=== PATIENT | female | born 1940 | race Caucasian/White ===

== ENCOUNTER 2022-05-02 14:24 | Inpatient (IN) | payer MEDICARE, OTHER ==
[~2022-05-02] VITALS: Ht 155 cm; Wt 62.0 kg
[~2022-05-02 14:24] MED LIST: 8 HOUR650 MG PO; ASPIRIN PO; CALCIUM CITRAT200 MG PO; DAILY VALUE1 EACH PO; OMEPRAZOLE40 MG PO; ONDANSETRON ODT4 MG PO/SL; ROPINIROLE HCL0.5 MG PO; ZESTRIL5 MG PO
[2022-05-02 17:11] LABS: BASOPHIL 0.3 % (0-2); EOSINOPHIL 0.4 % (0-7); HCT 35.5 % (37.0-47.0); HGB 11.8 g/dl (12.5-16.0); LYMPHOCYTE 4.2 % (15-48); MCH 31.5 pg (25.0-31.0); MCHC 33.2 g/dL (32.0-36.0); MCV 94.7 fL (78.0-100.0); MONOCYTE 6.1 % (0-12); NRBC 0; PLT 422 K/uL (150-400); RBC 3.75 M/uL (4.20-5.40); RDW 12.7 % (11.5-14.0)
[2022-05-02 17:13] LABS: WBC 23.1 K/uL (4.0-10.5)
[2022-05-02 17:39] LABS: LACTIC ACID 1.9 mmol/L (0.4-1.9)
[2022-05-02 17:50] LABS: ALBUMIN 3.8 g/dL (3.4-5.0); BILIRUBIN - TOTAL 0.6 mg/dL (0.2-1.0); GLOBULIN (CALCULATION) 4.2 g/dL; LIPASE <10 U/L (73-393)
[2022-05-02 18:09] LABS: BUN 21 mg/dL (7-18); CHLORIDE 90 mmol/L (98-107); CO2 (BICARBONATE) 23 mmol/L (21-32); GLUCOSE 161 mg/dL (74-106); MAGNESIUM 1.8 mg/dL (1.8-2.4); POTASSIUM 5.1 mmol/L (3.5-5.1)
[2022-05-02 18:10] LABS: CREATININE 1.37 mg/dL (0.51-0.95)
[2022-05-02 18:11] LABS: ALKALINE PHOSHATASE 144 U/L (46-116); ALT 27 U/L (14-59); AST 36 U/L (15-37)
[2022-05-02 18:15] LABS: FT4 (FREE T4) 1.52 ng/dL (0.76-1.46)
[2022-05-02 20:26] LABS: BILIRUBIN NEGATIVE (NEGATIVE); BLOOD NEGATIVE Ery/uL (NEGATIVE); CLARITY CLEAR (CLEAR); COLOR YELLOW (YELLOW); GLUCOSE (U) NORMAL (NORMAL); LEUKOCYTES NEGATIVE Leu/uL (NEGATIVE); NITRITE NEGATIVE (NEGATIVE); PROTEIN TRACE (LOW) mg/dL (NEGATIVE); SPECIFIC GRAVITY <=1.005 (1.001-1.030); UROBILINOGEN 0.2 mg/dL (0.2-1.0)
[2022-05-02 23:44] LABS: BUN/CREAT RATIO (CALC) 16.5 RATIO; CREATININE 1.33 mg/dL (0.51-0.95); POTASSIUM 4.8 mmol/L (3.5-5.1)
[2022-05-03 06:39] LABS: BASOPHIL 0.3 % (0-2); EOSINOPHIL 0.1 % (0-7); HCT 25.6 % (37.0-47.0); HGB 8.8 g/dl (12.5-16.0); LYMPHOCYTE 8.9 % (15-48); MCH 33.2 pg (25.0-31.0); MCHC 34.4 g/dL (32.0-36.0); MCV 96.6 fL (78.0-100.0); MONOCYTE 7.2 % (0-12); MPV 8.6 fL (6.0-9.5); NEUTROPHIL 82.8 % (41-80); NRBC 0; PLT 337 K/uL (150-400); RBC 2.65 M/uL (4.20-5.40); RDW 12.9 % (11.5-14.0); RETICULOCYTE COUNT 1.4 % (1.0-2.0); WBC 13.8 K/uL (4.0-10.5)
[2022-05-03 06:52] LABS: IRON % SATURATION 11.1 %SAT (20-50)
[2022-05-03 07:19] LABS: BUN/CREAT RATIO (CALC) 15.3 RATIO; CREATININE 1.31 mg/dL (0.51-0.95); POTASSIUM 4.5 mmol/L (3.5-5.1)
[2022-05-03 12:07] LABS: BUN/CREAT RATIO (CALC) 17.1 RATIO; CREATININE 1.23 mg/dL (0.51-0.95); POTASSIUM 4.3 mmol/L (3.5-5.1)
[2022-05-03 17:25] LABS: BUN/CREAT RATIO (CALC) 18.3 RATIO; CREATININE 1.15 mg/dL (0.51-0.95); POTASSIUM 4.4 mmol/L (3.5-5.1)
[2022-05-03 23:39] LABS: CREATININE 0.94 mg/dL (0.51-0.95)
[2022-05-04 06:59] LABS: HCT 19.4 % (37.0-47.0); HGB 8.3 g/dl (12.5-16.0); MPV 8.8 fL (6.0-9.5); PLT 342 K/uL (150-400); RBC 1.81 M/uL (4.20-5.40); WBC 8.6 K/uL (4.0-10.5)
[2022-05-04 07:03] LABS: BUN/CREAT RATIO (CALC) 14.4 RATIO; CREATININE 0.9 mg/dL (0.51-0.95)
[2022-05-04 07:36] LABS: MCH 45.9 pg (25.0-31.0); MCHC 42.8 g/dL (32.0-36.0); MCV 107.2 fL (78.0-100.0)
--- NOTE | 2022-05-04 13:37 | NUR ---
05/04/22 Ms. Hedrick lives alone. Her son, Derrick Hedrick, lives across the street. - Ms. Hedrick is independent in the home and community. - PCP = Risa Santos. - Drs. Novak and Florinda are consulting r/t a likely dx of colon cancer with mets. - Ms. Hedirck and her son report to be awaiting test results. - Will monitor for discharge planning needs.
== END 2022-05-04 16:35 | disposition home or self-care (01) | DRG 375 ==
LOC: FER 14:24 → FMS 20:08
PROVIDERS: Emergency Medicine; Family Medicine; Nurse Practitioner Acute Care; Student in an Organized Health Care Education/Training Program; ADMIT Internal Medicine
PROC: B24BZZZ Ultrasonography of Heart with Aorta (ICD-10-PCS; 2022-05-03)
PROC: 0DB78ZX Excision of Stomach, Pylorus, Via Natural or Artificial Opening Endoscopic, Diagnostic (ICD-10-PCS; principal; 2022-05-04 09:00)
PROC: 0DJD8ZZ Inspection of Lower Intestinal Tract, Via Natural or Artificial Opening Endoscopic (ICD-10-PCS; 2022-05-04 09:00)
DX: C18.9 Malignant neoplasm of colon, unspecified (principal); C78.6 Secondary malignant neoplasm of retroperitoneum and peritoneum; C78.7 Secondary malignant neoplasm of liver and intrahepatic bile duct; E87.1 Hypo-osmolality and hyponatremia; N17.9 Acute kidney failure, unspecified; Z20.822 Contact with and (suspected) exposure to COVID-19; Z66 Do not resuscitate; D72.829 Elevated white blood cell count, unspecified; R73.9 Hyperglycemia, unspecified; D63.0 Anemia in neoplastic disease; R01.1 Cardiac murmur, unspecified; D46.4 Refractory anemia, unspecified; I10 Essential (primary) hypertension; K21.9 Gastro-esophageal reflux disease without esophagitis; K57.30 Diverticulosis of large intestine without perforation or abscess without bleeding; R41.3 Other amnesia; K29.50 Unspecified chronic gastritis without bleeding; K44.9 Diaphragmatic hernia without obstruction or gangrene; Z90.49 Acquired absence of other specified parts of digestive tract; Z98.890 Other specified postprocedural states; Z82.49 Family history of ischemic heart disease and other diseases of the circulatory system; Z80.0 Family history of malignant neoplasm of digestive organs
CPT/HCPCS: 36415; 71250; 80048; 80053; 81003; 82378; 82728; 83036; 83540; 83550; 83605; 83690; 83735; 83935; 84145; 84300; 84439; 84443; 84484; 85025; 87040; 87045; 87046; 93005; 94010; 96365; 96375; 97162; 97166; J1170; J1610; J1650; J2405; J2543; J2704; J3475; J7030; J7120; Q9967; U0002

== ENCOUNTER → 2022-06-10 | Day surgery (SDC) | payer MEDICARE, OTHER ==
[~2022-06-10] VITALS: Ht 154.9 cm; Wt 56.3 kg
[~2022-06-10] MED LIST changes: +ULTRAM50 MG PO
[2022-06-10 13:08] LABS: BUN/CREAT RATIO (CALC) 18.8 RATIO; CREATININE 0.8 mg/dL (0.51-0.95); POTASSIUM 4.6 mmol/L (3.5-5.1)
== END | disposition home or self-care (01) ==
LOC: FAS 11:59
PROVIDERS: Student in an Organized Health Care Education/Training Program
DX: C56.9 Malignant neoplasm of unspecified ovary (principal); C79.9 Secondary malignant neoplasm of unspecified site; I10 Essential (primary) hypertension; K21.9 Gastro-esophageal reflux disease without esophagitis; Z88.8 Allergy status to other drugs, medicaments and biological substances
CPT/HCPCS: 36415; 71045; 76000; 80048; C1788; J0690; J1100; J1644; J1885; J2001; J2405; J2704; J3010; J7120

== ENCOUNTER 2022-06-29 17:56 | Emergency (ER) | payer MEDICARE, OTHER | END 2022-06-29 18:58 | disposition home or self-care (01) | LOC: FER 17:56 | DX: I83.891 Varicose veins of right lower extremity with other complications (principal) | CPT/HCPCS: 99283 ==